=== PATIENT | male | born 1990 | race African-American/Black ===

== ENCOUNTER 2017-08-09 21:51 | Emergency (ER) | payer MEDICARE, SELFPAY ==
[2017-08-09] MEDS ORDERED: Ketorolac Tromethamine 60 MG/2 ML VIAL ONE (22:45)
== END 2017-08-09 22:58 | disposition home or self-care (01) ==
LOC: BURERS 21:51
DX: J11.1 Influenza due to unidentified influenza virus with other respiratory manifestations (principal); I10 Essential (primary) hypertension; F31.9 Bipolar disorder, unspecified; F17.210 Nicotine dependence, cigarettes, uncomplicated
CPT/HCPCS: 96372; J1885

== ENCOUNTER 2017-12-14 15:05 | Emergency (ER) | payer SELFPAY ==
[2017-12-14] MEDS ORDERED: AMOXicillin 250 MG CAP ONE (15:25)
[2017-12-14] MEDS ORDERED: Ibuprofen 800 MG TAB ONE (15:26)
== END 2017-12-14 15:34 | disposition home or self-care (01) ==
LOC: BURERS 15:05
DX: J02.9 Acute pharyngitis, unspecified (principal); I10 Essential (primary) hypertension; F31.9 Bipolar disorder, unspecified; F17.210 Nicotine dependence, cigarettes, uncomplicated; Z79.899 Other long term (current) drug therapy
CPT/HCPCS: 99283

== ENCOUNTER 2018-04-18 19:54 | Emergency (ER) | payer SELFPAY | END 2018-04-18 20:18 | disposition home or self-care (01) | LOC: BURERS 19:54 | DX: M54.5 Low back pain (principal); I10 Essential (primary) hypertension; F31.9 Bipolar disorder, unspecified; F17.210 Nicotine dependence, cigarettes, uncomplicated | CPT/HCPCS: 99283 ==

== ENCOUNTER 2020-04-09 19:28 | Emergency (ER) | payer MEDICARE, SELFPAY ==
[2020-04-09] MEDS ORDERED: Acetaminophen 500 MG TAB ONE (19:44)
== END 2020-04-09 19:48 | disposition home or self-care (01) ==
LOC: BURERS 19:28
DX: R42 Dizziness and giddiness (principal)

== ENCOUNTER → 2020-04-15 | Emergency (ER) | payer MEDICARE, SELFPAY ==
[~2020-04-15] MED LIST: HYDROcodone/Acetaminophen 5/325 mg Tablet ONE; predniSONE 20 MG TAB ONE
== END ==
LOC: BURERS 09:02
DX: M54.5 Low back pain (principal); F31.9 Bipolar disorder, unspecified; F17.210 Nicotine dependence, cigarettes, uncomplicated; Z79.899 Other long term (current) drug therapy; X50.0XXA Overexertion from strenuous movement or load, initial encounter
CPT/HCPCS: 99283; J7512

== ENCOUNTER 2021-03-26 16:00 | Emergency (ER) | payer SELFPAY ==
[2021-03-27 17:45] LABS: SARS-CoV-2 PCR by NAA Not Detected (NotDetected)
== END 2021-03-26 16:50 | disposition home or self-care (01) ==
LOC: BURERS 16:00
DX: R05 Cough (principal); R19.7 Diarrhea, unspecified; Z20.822 Contact with and (suspected) exposure to COVID-19; F17.210 Nicotine dependence, cigarettes, uncomplicated
CPT/HCPCS: 99284; U0003; U0005

== ENCOUNTER 2021-04-27 16:37 | Emergency (ER) | payer SELFPAY | END 2021-04-27 17:04 | disposition home or self-care (01) | LOC: BURERS 16:37 | DX: F22 Delusional disorders (principal); F17.210 Nicotine dependence, cigarettes, uncomplicated | CPT/HCPCS: 99284 ==

== ENCOUNTER 2021-07-02 00:06 | Emergency (ER) | payer SELFPAY ==
[2021-07-02] MEDS ORDERED: HYDROcodone/Acetaminophen 10/325 mg Tablet ONE (00:28)
[2021-07-02] MEDS ORDERED: Ibuprofen 800 MG TAB ONE (00:31)
[2021-07-02] MEDS ORDERED: AMOXicillin 250 MG CAP ONE (00:34)
== END 2021-07-02 00:40 | disposition home or self-care (01) ==
LOC: BURERS 00:06
DX: K02.9 Dental caries, unspecified (principal); F17.210 Nicotine dependence, cigarettes, uncomplicated
CPT/HCPCS: 99282

== ENCOUNTER 2022-08-24 13:26 | Emergency (ER) | payer SELFPAY ==
[2022-08-24 14:16] LABS: Bilirubin Small (Negative); Blood, Urine Negative (Negative); Clarity Clear (Clear); Glucose, Urine (Dipstick) Negative (Negative); Ketone, Urine Negative (Negative); Leukocyte Negative (Negative); Nitrite Negative (Negative); Protein, Urine (Dipstick) > or equal to 300 mg/dL (Neg-Trace); pH, Urine 5.5 (5.0-9.0)
[2022-08-24 14:19] LABS: Specific Gravity, Urine 1.049 (1.002-1.036)
[2022-08-24 14:25] LABS: Bacteria/HPF 2+ HPF (None Seen); RBC/HPF 0-3 HPF (0-3); Squamous Epithelial 0-3 HPF (0-3); WBC/HPF 0-3 HPF (0-3)
[2022-08-24 14:27] LABS: Amphetamine Not Detected (NotDetected); Barbiturates Screen Not Detected (NotDetected); Benzodiazepine Screen Detected (NotDetected); Cocaine Metabolite Screen Not Detected (NotDetected); Medtox Control Line Valid? VALID (VALID); Methadone Not Detected (NotDetected); Methamphetamine Not Detected (NotDetected); Opiate Screen Not Detected (NotDetected); Oxycodone Screen Not Detected (NotDetected); Phencyclidine (PCP) Not Detected (NotDetected); THC/Cannabinoid Screen Not Detected (NotDetected); Tricyclic Screen Detected (NotDetected)
[2022-08-24 14:38] LABS: ALT (SGPT) 44 U/L (8-55); AST (SGOT) 92 U/L (5-34); Albumin 4.9 g/dL (3.5-5.0); Alcohol Less than 10 mg/dL (Less than 10); Alkaline Phosphatase 65 U/L (40-110); Anion Gap 13 mmol/L (10-20); BUN (Urea Nitrogen) 16 mg/dL (8.9-20.6); Calc. Creatinine Clearance 0 mL/min (70-130); Calcium 9.5 mg/dL (7.8-10.44); Carbon Dioxide 23 mmol/L (22-29); Chloride 109 mmol/L (98-107); Estimated GFR 65; Glucose 111 mg/dL (70-105); Magnesium 1.9 mg/dL (1.6-2.6); Potassium 3.3 mmol/L (3.5-5.1); Protein, Total 7.9 g/dL (6.0-8.3); Salicylate Less than 8.0 mg/dL (15.0-30.0); Sodium 142 mmol/L (136-145)
[2022-08-24 14:41] LABS: #Basophils 0.1 thou/uL (0.0-0.2); #Eosinphils 0.2 thou/uL (0.0-0.7); #Lymphocytes 0.8 thou/uL (1.20-3.40); #Monocytes 0.4 thou/uL (0.11-0.59); #Neutrophils 1.5 thou/uL (1.40-6.50); %Basophils 2.4 % (0.0-1.0); %Eosinophils 6.1 % (0.0-10.0); %Lymphocytes 27.8 % (21.0-51.0); %Monocytes 12.6 % (0.0-10.0); %Neutrophils 51.1 % (42.0-75.0); Hemoglobin 12.7 g/dL (14.0-18.0); Mean Corpuscular HGB CONC 33.3 g/dL (32.0-36.0); Mean Corpuscular Volume 84.2 fl (78.0-98.0); Mean Platelet Volume 7.4 fL (7.4-10.4); Platelet Count 232 10x3/uL (130-400); RBC Distribution Width 12.8 % (11.5-14.5); Red Blood Cell (RBC) Count 4.54 mill/uL (4.70-6.10); White Blood Cell (WBC) Count 2.9 10x3/uL (4.8-10.8)
[2022-08-24] MEDS ORDERED: Ziprasidone 20 MG VIAL ONE (16:36)
[2022-08-24] MEDS ORDERED: Lorazepam 2 MG/ML VIAL ONE (16:36)
[2022-08-24] MEDS ORDERED: diphenhydrAMINE 50 MG/ML VIAL ONE (16:36)
[2022-08-24] MEDS ORDERED: Diazepam 10 MG/2 ML SYRINGE ONE (19:40)
== END 2022-08-24 20:10 ==
LOC: BURERS 13:26
DX: F20.9 Schizophrenia, unspecified (principal); F29 Unspecified psychosis not due to a substance or known physiological condition; F17.210 Nicotine dependence, cigarettes, uncomplicated
CPT/HCPCS: 36415; 51701; 80053; 80143; 80179; 80306; 80307; 81003; 81015; 83605; 83735; 83880; 84443; 84484; 85025; 96372; J1200; J2060; J3360; J3486